=== PATIENT | male | born 1995 | race Asian ===

== ENCOUNTER 2021-10-11 18:23 | Emergency (ER) | payer OTHER ==
[~2021-10-11] VITALS: Ht 167.6 cm; Wt 70.5 kg
[~2021-10-11 18:23] MED LIST: ZYRTEC10 MG PO
[2021-10-11 19:00] LABS: BASO # 0.03 K/mm3 (0.02-0.10); EOS # 0.09 K/mm3 (0.04-0.40); EOS % 1.3 % (0.0-4.0); HEMATOCRIT 46.6 % (42.0-52.0); HEMOGLOBIN 15.9 g/dL (13.5-18.0); MEAN CELL VOLUME 88 fl (78-100); MEAN CORPUSCULAR HEMOGLOBIN 30 pg (27-31); MEAN CORPUSCULAR HGB CONC 34 g/dL (33-37); MEAN PLATELET VOLUME 8.9 fl (7.4-10.4); MONO # 0.53 K/mm3 (0.20-0.80); NEU # 3.05 K/mm3 (1.40-6.50); PLATELET COUNT 287 K/mm3 (130-400); RED BLOOD COUNT 5.31 M/mm3 (4.20-5.60); RED CELL DISTRIBUTION WIDTH 11.6 % (11.5-14.5); WHITE BLOOD COUNT 7.1 K/mm3 (4.8-10.8)
[2021-10-11 19:03] LABS: ALBUMIN 4.7 g/dL (3.5-5.0); POTASSIUM 3.4 mmol/L (3.5-5.1); SODIUM 142 mmol/L (136-145)
[2021-10-11 19:05] LABS: CALCIUM 9.7 mg/dL (8.3-10.5)
[2021-10-11 19:06] LABS: GLUCOSE 95 mg/dL (75-110); TOTAL PROTEIN 8.4 g/dL (6.4-8.3)
[2021-10-11 19:07] LABS: CARBON DIOXIDE 25 mmol/L (22-29)
[2021-10-11] MEDS ORDERED: LEXAPRO 10MG10 MG PO (19:07)
[2021-10-11 19:08] LABS: TOTAL BILIRUBIN 0.4 mg/dL (0.2-1.2)
[2021-10-11 19:11] LABS: AST-SGOT 19 U/L (5-34)
[2021-10-11 19:12] LABS: ALT/SGPT 14 U/L (0-55)
[2021-10-11 19:22] LABS: PARTIAL THROMBOPLASTIN TIME 24.6 SECONDS (21.0-32.0); PROTHROMBIN TIME 9.5 SECONDS (9.0-12.0)
[2021-10-11 19:24] LABS: TROPONIN-I < 0.030 ng/mL (<0.030)
[2021-10-11 22:40] VITALS: BP 134/88
== END 2021-10-11 22:40 | disposition short-term general hospital (02) ==
LOC: ED 18:23
PROVIDERS: Physician Assistant
DX: R07.9 Chest pain, unspecified (principal); R94.31 Abnormal electrocardiogram [ECG] [EKG]; Z20.822 Contact with and (suspected) exposure to COVID-19
CPT/HCPCS: J0780; J1650

== ENCOUNTER → 2022-02-08 | Outpatient (CLI) | payer OTHER ==
[~2022-02-08] MED LIST changes: +LEXAPRO 10MG10 MG PO
[2022-02-09 16:24] LABS: HEPATITIS B SURFACE ANTIBODY 34.3 (()); HEPATITIS B SURFACE ANTIGEN Negative (Negative)
== END ==
LOC: LAB 16:19
PROVIDERS: Nurse Practitioner Family
DX: T14.8XXA Other injury of unspecified body region, initial encounter (principal)